=== PATIENT | female | born 1980 | race Caucasian/White ===

== ENCOUNTER 2018-02-14 10:44 | Inpatient (IN) | payer SELFPAY ==
[2018-02-14 11:17] LABS: #Basophils 0.1 thou/uL (0.0-0.2); #Eosinphils 0.5 thou/uL (0.0-0.7); #Lymphocytes 2.8 thou/uL (1.20-3.40); #Monocytes 0.6 thou/uL (0.11-0.59); %Basophils 1.1 % (0.0-1.0); %Lymphocytes 31.2 % (21.0-51.0); %Monocytes 6.5 % (0.0-10.0); %Neutrophils 55.3 % (42.0-75.0); Hemoglobin 9.4 g/dL (12.0-16.0); Mean Corpuscular HGB CONC 31.8 g/dL (32.0-36.0); Mean Corpuscular Volume 81.8 fL (78.0-98.0); Mean Platelet Volume 7.5 fL (7.4-10.4); Platelet Count 425 thou/uL (130-400); RBC Distribution Width 16.3 % (11.5-14.5); Red Blood Cell (RBC) Count 3.63 mill/uL (4.20-5.40)
[2018-02-14 11:38] LABS: ALT (SGPT) 15 U/L (8-55); AST (SGOT) 18 U/L (5-34); Albumin 4.1 g/dL (3.5-5.0); Alkaline Phosphatase 64 U/L (40-150); Anion Gap 12 mmol/L (10-20); BUN (Urea Nitrogen) 11 mg/dL (7.0-18.7); Bilirubin, Total 0.2 mg/dL (0.2-1.2); CK (CPK) 78 U/L (29-168); Calc. Creatinine Clearance 0 mL/min (70-130); Calcium 9.2 mg/dL (7.8-10.44); Carbon Dioxide 22 mmol/L (22-29); Chloride 108 mmol/L (98-107); Estimated GFR-MDRD 85; Globulin 2.9 g/dL (2.4-3.5); Glucose 83 mg/dL (70-105)
[2018-02-14 11:40] LABS: Sodium 138 mmol/L (136-145)
[2018-02-14 11:41] LABS: CKMB 0.9 ng/mL (0-6.6); Troponin I Less than 0.010 ng/mL (< 0.028)
--- NOTE | 2018-02-14 11:53 | RAD ---
CHEST ONE VIEW UPRIGHT PORTABLE: History: 37-year-old female with history of chest pain and pressure which began last night with nausea. Comparison: 03-22-15 FINDINGS: Monitor leads overlie the chest. Heart size is within normal limits. The lungs are clear. IMPRESSION: No acute intrathoracic disease. POS: [facility]
[2018-02-14] MEDS ORDERED: Mag-Al 1200 mg/1200 mg/30 ML UDCUP ONE (14:02)
[2018-02-14] MEDS ORDERED: Lidocaine Viscous Sol 2% 15 ml UD Cup ONE (14:02)
[2018-02-14 14:56] LABS: Troponin I Less than 0.010 ng/mL (< 0.028)
--- NOTE | 2018-02-14 15:29 | PDOC.FPRHP ---
- History of Present Illness Chief Complaint: Chest pain History of Present Illness: Mrs. Long presents with complaint of chest pain. Pain started yesterday evening , but she was able to go to sleep normally last night. This morning the pain gradually worsened. Located in center of chest and epigastric area. Pain was intermittent and does not radiate. Described as "pressure and fullness". 10/10 when it was the worst, but now it is gone. No alleviating factors. Movement and activity aggravates. She has had this same pain in the past, about 2 yrs ago, which underwent a cardiac workup which was negative. Endorsed nausea, no vomiting. [place] hot and like she could pass out, but never did. Denies history of heartburn or reflux. Has history of SOB w/exertion which has remained unchanged. Patient is on her menstrual cycle, day 3. She originally thought pain/cramping was from this. Patient has hx of anxiety which has been treated in the past, but not now. Says she has been under a lot of stress lately and became very tearful in the room. Previous chest pain events have occurred under times of stress as well. ED Course: aspirin, GI cocktail, EKG, CXR, labs - Allergies/Adverse Reactions Allergies Allergy/AdvReac Type Severity Reaction Status Date / Time No Known Allergies Allergy Verified 02/14/18 15:59 - Home Medications Medication Instructions Recorded Confirmed Type No Known [No Known] 02/14/18 02/14/18 History - History PMHx:Biscuspid aortic valve, anxiety, anemia PSHx: 3 c-sections FHx:mother VT in 40s. aunt VT in 30s. Grandparents had MIs. Family hx of anxiety. Social: Works at a grocery store. Smoker, 1ppd for 20 yrs. Occasional alcohol use. Denies drug use. - Review of Systems General: reports: night sweats (past few nights). denies: fever/chills, weight/ appetite/sleep changes Eyes: denies: eye pain, vision changes ENT: denies: nasal congestion, rhinorrhea Respiratory: reports: shortness of breath (unchanged), exercise intolerance ( chronic, unchanged). denies: cough Cardiovascular: reports: chest pain, edema. denies: palpitation Gastrointestinal: reports: nausea, constipation, abdominal pain (menstrual cramps). denies: vomiting Genitourinary: denies: incontinence, dysuria Skin: denies: rashes, lesions Musculoskeletal: denies: stiffness, swelling Neurological: denies: numbness, weakness Psychological: reports: anxiety. denies: depression - Vital signs BP: 122/79 HR: 62 RR: 16 Tmax: 98 Pox: 98% on RA Wt: 75 - Physical Exam Constitutional: NAD, awake, alert and oriented HEENT: normocephalic and atraumatic, PERRLA, EOMI, grossly normal vision, grossly normal hearing Neck: supple, trachea midline, no JVD, no thyromegaly, no bruits Chest: no-tender to palpation Heart: normal S1/S2, other (Bradycardia, 3/6 systolic aortic murmur) Lungs: CTAB, no respiratory distress, good air movement, no rales/rhonchi Abdomen: soft, non-tender, bowel sounds present Musculoskeletal: normal structure, normal tone, ROM grossly normal Neurological: no focal deficit Skin: no rash/lesions, capillary refill <2 seconds Heme/Lymphatic: no unusual bruising or bleeding Psychiatric: normal mood and affect, intact recent and remote memory FMR H&P: Results - Labs Result Diagrams: 02/14/18 11:12 02/14/18 11:12 Lab results: WBC 9.0 thou/uL (4.8-10.8) 02/14/18 11:12 Hgb 9.4 g/dL (12.0-16.0) L 02/14/18 11:12 Hct 29.7 % (36.0-47.0) L 02/14/18 11:12 MCV 81.8 fL (78.0-98.0) 02/14/18 11:12 Plt Count 425 thou/uL (130-400) H 02/14/18 11:12 Neutrophils % 55.3 % (42.0-75.0) 02/14/18 11:12 Sodium 138 mmol/L (136-145) 02/14/18 11:12 Potassium 4.0 mmol/L (3.5-5.1) 02/14/18 11:12 Chloride 108 mmol/L (98-107) H 02/14/18 11:12 Carbon Dioxide 22 mmol/L (22-29) 02/14/18 11:12 BUN 11 mg/dL (7.0-18.7) 02/14/18 11:12 Creatinine 0.77 mg/dL (0.6-1.1) 02/14/18 11:12 Glucose 83 mg/dL (70-105) 02/14/18 11:12 Calcium 9.2 mg/dL (7.8-10.44) 02/14/18 11:12 Total Bilirubin 0.2 mg/dL (0.2-1.2) 02/14/18 11:12 AST 18 U/L (5-34) 02/14/18 11:12 ALT 15 U/L (8-55) 02/14/18 11:12 Alkaline Phosphatase 64 U/L (40-150) 02/14/18 11:12 Creatine Kinase 78 U/L (29-168) 02/14/18 11:12 CK-MB (CK-2) 0.9 ng/mL (0-6.6) 02/14/18 11:12 B-Natriuretic Peptide 80.1 pg/mL (0-100) 02/14/18 11:09 Serum Total Protein 7.0 g/dL (6.0-8.3) 02/14/18 11:12 Albumin 4.1 g/dL (3.5-5.0) 02/14/18 11:12 Lipase 31 U/L (8-78) 02/14/18 11:12 - EKG Interpretation EKG: Sinus bradycardia, no ST changes FMR H&P: A/P - Plan Chest pain rule out (ACS vs angina vs MSK vs anxiety vs GERD) -considering patient's family history of cardiac events at 30-40 yrs of age, ACS should be ruled out. Pain has resolved and workup is negative so far. Pt is under a lot of stress, so anxiety could definitely be contributory. -trend troponins, 2 negative -EKG- sinus moni -aspirin 81 mg -lipid panel -on telemetry -plan for stress test tomorrow, NPO after midnight Normocytic anemia -pt reports history of anemia -has been advised to take iron supplements, but doesn't Bradycardia -pt reports history of bradycardia, pulse usually in 40s-50s -will monitor on telemetry Anxiety -reports history of untreated anxiety. -will consider adding prn if anxiety worsens Hx of bicuspid aortic valve Ppx: Lovenox. No GI ppx indicated at this time Full Code FMR H&P: Upper Level - Pertinent history This is a 37F who complains of 1 day of chest pain, starting evening prior to admission, has been getting worst throughout the day. Substernal pressure pain, intermittent, non radiating, described as pressure like, 10/10 at worst, without alleviating factors. Movement and activity worsens it. Associated with nausea. Patient admits to being under stress recently, has a history of anxiety and had not been taking anxiety medication. She was tearful in interview. She had previous ER visit for chest pain with normal lab and diagnosis of anxiety. - Pertinent findings PMHx: Biscupsid aortic valve, anxiety, anemia Pshx: 3 , tubal ligation FHx: Mother and aunt with VT under age 40. Grandparent with MIs Social: Smokes 1 ppd for 20 year. Social alcohol use. Denies drug use. ROS Gen: Endorse occasional night sweat. Denies fever/chills. HEENT: Deny vision change, rhinorrhea, Resp: Endorse SOB with exertion but is unchanged. Denies cough. CV: Endorse chest pain. Denies palpitaiton GI: Endorse nausea. Denies vomiting. : Endorses menstral cramp. Denies dysuria Psych: Endorse anxiety PE Gen: NAD, awake, oriented HEENT: Normocephalic. Grossly normal vision, hearing. Moist membranes CV: Bradycardic, occasionally irregular with prolong beat Res: No respiratory distress, good air movement Abd: Soft, non tender withoug guarding Neuro: No focal deficit Psych: tearful Pertinent Lab/Imaging EKG: Sinus bradycardia, no obvious ischemic ST changes Trop: Negative x2 Hgb: 9.4 A/P 1. Atypical Chest pain, likely secondary to anxiety - Heart Score 2 due to 1 point for family history and 1 for history - Plan, Trop x 3, NPO at midnight for stress test tomorrow. Baby aspirin daily. - Lipid panel today for risk stratification. 2. Normocytic anemia - Has history of anemia. Patient does not desire iron supplementation 3. Bradycardia - Patient reports hx of bradycardia but not symptomatic this time. - Monitor on Tele 4. Anxiety - Reports history of anxiety. - Advise patient ot follow up with PCP 5. PPX - Lovenox. - Plan Date/Time: 02/14/18 1527 I, [Devante Blas], have evaluated this patient and agree with findings/plan as outlined by management retail intern resident. Pertinent changes/additions are listed here.
[2018-02-14] MEDS ORDERED: Nicotine 14 MG PATCH TD SCH ×2 (15:39→21:00)
[2018-02-14 16:08] VITALS: BMI 27.4
[2018-02-14 18:03] LABS: Troponin I Less than 0.010 ng/mL (< 0.028)
[2018-02-14] MEDS ORDERED: Lidocaine 2% Viscous Solution 20 ML, Aluminum & Magnesium Hydroxide 30 ML, Donnatal Eli... SSW SCH (22:30)
--- NOTE | 2018-02-14 22:56 | HP ---
Please send note from Dr. Carvajal for which I concur. HISTORY OF PRESENT ILLNESS: This is a 37-year-old female with extremely strong family history of hea rt disease, especially people even in the 30s and 40s and that is why she is coming in with a chest d iscomfort started last night really did not in the ER, but now is doing better shortly after a GI cocktail, but has issues with some shortness of breath. She is a heavy smoker, not having a lot o f other cardiac risk factors. Admits a lot of heartburn recently, admits a lot of anxiety recently a nd wonders if those things are may be playing into this. Initial blood workup showed hemoglobin low at 9.4. She is on her period currently. Initial Cardiac enzymes x2 have been normal. EKG is fine. PAST MEDICAL HISTORY, SURGICAL HISTORY, FAMILY HISTORY, REVIEW OF SYSTEMS: All per the resident's hi story and physical. PHYSICAL EXAMINATION: GENERAL: Mildly anxious affect, but in no apparent distress. VITAL SIGNS: Stable. HEENT: Within normal limits. CHEST: Clear. CARDIAC: Regular rate and rhythm. No murmurs, rubs or gallops. ABDOMEN: Positive bowel sounds, soft, nontender, nondistended. EXTREMITIES: Show no edema. ASSESSMENT AND PLAN: Chest pain. Certainly atypical unusual for her age and this is more likely reflux or anxiety, but we will continue to trend enzymes. Continue aspirin therapy and we will do a stress test in the [facility]. As long as it is normal will be able to be discharged out, likely on a proton pump inhibitor and an antacid or any anxiety medicine potentially as needed. She did not want to take one daily in the past. Certainly if the test is positive, we will get Cardiology involved.
[2018-02-14 23:19] LABS: Troponin I Less than 0.010 ng/mL (< 0.028)
[2018-02-15 05:03] LABS: #Basophils 0.1 thou/uL (0.0-0.2); #Eosinphils 0.5 thou/uL (0.0-0.7); #Lymphocytes 3.6 thou/uL (1.20-3.40); #Monocytes 0.7 thou/uL (0.11-0.59); #Neutrophils 4.7 thou/uL (1.40-6.50); %Basophils 0.8 % (0.0-1.0); %Lymphocytes 38.2 % (21.0-51.0); %Monocytes 6.9 % (0.0-10.0); %Neutrophils 49.2 % (42.0-75.0); Hemoglobin 8.7 g/dL (12.0-16.0); Mean Corpuscular HGB CONC 30.3 g/dL (32.0-36.0); Mean Corpuscular Hemoglobin 24.5 pg (27.0-31.0); Mean Platelet Volume 7.8 fL (7.4-10.4); Platelet Count 431 thou/uL (130-400); RBC Distribution Width 16.4 % (11.5-14.5); Red Blood Cell (RBC) Count 3.55 mill/uL (4.20-5.40); White Blood Cell (WBC) Count 9.5 thou/uL (4.8-10.8)
[2018-02-15 05:22] LABS: Anion Gap 12 mmol/L (10-20); BUN (Urea Nitrogen) 10 mg/dL (7.0-18.7); Calc. Creatinine Clearance 144 mL/min (70-130); Calcium 9.3 mg/dL (7.8-10.44); Carbon Dioxide 24 mmol/L (22-29); Cardiac Risk 3.3 (Less than 4.5); Chloride 109 mmol/L (98-107); Cholesterol 135 mg/dl (< 200 Desired); Estimated GFR-MDRD Greater than 90; Glucose 80 mg/dL (70-105); HDL Cholesterol 41 mg/dL (>60 Neg Risk); LDL Cholesterol, Calculated 73 mg/dL; Potassium 4.5 mmol/L (3.5-5.1); Sodium 140 mmol/L (136-145); Triglycerides 104 mg/dL (Less than 150)
--- NOTE | 2018-02-15 05:49 | PDOC.FM ---
- Subjective Subjective: Overnight, Ms. Long had two episodes where she experienced the chest pain, nausea, feeling SOB and anxious. After reviewing tele leads it revealed second degree type II heart block and an episode of supraventricular tachycardia each lasting about 7-8 seconds. - Objective Vital Signs & Weight: Vital Signs (12 hours) Temp Pulse Resp BP BP Pulse Ox 02/15/18 04:20 65 18 117/58 L 02/14/18 23:03 98.3 F 51 L 12 114/70 95 02/14/18 20:29 98 02/14/18 20:08 98.3 F 63 16 113/70 98 Weight Weight 77.247 kg I&O: 02/13/18 02/14/18 02/15/18 06:59 06:59 06:59 Intake Total 240 Balance 240 Result Diagrams: 02/15/18 03:30 02/15/18 03:30 <Milena Tristan - Last Filed: 02/15/18 13:49> - Objective Vital Signs & Weight: Vital Signs (12 hours) Temp Pulse Resp BP Pulse Ox 02/15/18 14:50 98.2 F 63 20 135/94 H 98 02/15/18 11:01 98.2 F 50 L 16 111/60 97 02/15/18 09:00 98.3 F 55 L 18 02/15/18 07:34 98.3 F 55 L 18 109/67 96 Weight Weight 77.247 kg I&O: 02/14/18 02/15/18 02/16/18 06:59 06:59 06:59 Intake Total 240 Balance 240 Result Diagrams: 02/15/18 03:30 02/15/18 03:30 <Emanuel Swenson - Last Filed: 02/15/18 16:48> Phys Exam - Physical Examination Constitutional: NAD HEENT: PERRLA Neck: no JVD Respiratory: no wheezing Cardiovascular: RRR aortic systolic murmur 3/6 Gastrointestinal: soft, non-tender Musculoskeletal: no edema Neurological: moves all 4 limbs Skin: no rash, cap refill <2 seconds <Milena Tristan - Last Filed: 02/15/18 13:49> Dx/Plan (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 Chest pain rule out (ACS vs angina vs MSK vs anxiety vs GERD) -considering patient's family history of cardiac events at 30-40 yrs of age, ACS should be ruled out. Pain has resolved and workup is negative so far. Pt is under a lot of stress, so anxiety could definitely be contributory. -Troponins negative x4 -Aspirin 81 mg -Lipid panel -Continue telemetry monitoring -Would kindly appreciate further recommendations from cardiology -Will hold off stress test until cardiology can see her, will continue NPO until then 2. Tachy-Marcelo syndrome -Tele monitoring strips show episodes of SVT and 2nd degree (type II heart block ) overnight 3. Normocytic anemia -pt reports history of anemia -currently on menstrual cycle -will order Fe, TIBC, Ferritin, B12, Folate 4. Anxiety -reports history of untreated anxiety. -will consider adding prn if anxiety worsens Hx of bicuspid aortic valve Ppx: Lovenox. No GI ppx indicated at this time Full Code <Milena Tristan - Last Filed: 02/15/18 13:49> Attending Addendum - Attending Addendum Date/Time: 02/15/18 4434 I personally evaluated the patient and discussed the management with Dr. Milena Tristan. I agree with the History, Examination, Assessment and Plan documented above with any addition or exceptions noted below. She is concerned about increased frequency of spells that have been occurring for the past couple of years with palpitations, rapid heartbeat, feeling flushed , nauseated and lightheaded on the verge of passing out. Rhythm strips indicate episodes of second degree block with variable ventricular response but occasional episodes of ventricular arrest. She also has episodes of SVT. Have consulted cardiology. I suspect she will likely need EP evaluation. We apologized that she has been held NPO pending cardiology eval and explained why and thanked her for her patience. [facility] <Emanuel Swenson - Last Filed: 02/15/18 16:48>
[2018-02-15] MEDS ORDERED: Enoxaparin Sodium 40 MG/0.4 ML SYRINGE SC SCH (09:00)
[2018-02-15] MEDS ORDERED: Acetaminophen 500 MG TAB PO PRN (10:03)
[2018-02-15] MEDS: Nicotine 14 MG PATCH TD SCH (10:33)
[2018-02-15] MEDS ORDERED: Communication Order-Pharmacy FS SCH (15:00)
[2018-02-15] MEDS ORDERED: Nitroglycerin 100MG/250ML BOT 250 ML ONE (15:06)
[2018-02-15] MEDS ORDERED: Lidocaine 1% (PF) 30 ML VIAL ONE (15:06)
[2018-02-15] MEDS ORDERED: Heparin 10,000 UNITS/1 ML VIAL ONE (15:07)
[2018-02-15] MEDS ORDERED: Midazolam HCl 2 mg/2 ml Vial ONE (15:30)
[2018-02-15] MEDS ORDERED: Fentanyl 100 MCG/2 ML VIAL ONE (15:30)
[2018-02-15] MEDS ORDERED: Verapamil 5 MG/2 ML VIAL ONE (15:30)
[2018-02-15] MEDS ORDERED: Atropine Sulfate 1 mg/1 ml Vial ONE (16:00)
[2018-02-15] MEDS ORDERED: Acetaminophen/Codeine 30-300mg Tablet PO PRN (16:04)
[2018-02-15] MEDS ORDERED: Nitroglycerin 0.4 MG TAB (25 Tab Bottle) SL PRN (16:04)
[2018-02-15] MEDS ORDERED: Sodium Chloride 0.9% 200 ML IV SCH (16:15)
[2018-02-15] MEDS ORDERED: Sodium Chloride 0.9% 1,000 ML IV SCH (16:15)
--- NOTE | 2018-02-15 16:49 | CON ---
DATE OF CONSULTATION: 02/15/2018 REASON FOR CONSULTATION: Chest pain and dysrhythmia. HISTORY OF PRESENT ILLNESS: Mr. Long is a very pleasant 37-year-old with his past history of tobacc o abuse who recently presented with chest pain. Her chest pain begins in her epigastric region and r adiates up into her chest. This lasts for several minutes. It is moderate to severe in nature. He then slowly dissipated. His CK and troponins have been negative. Last evening, she had another epis ode with associated ventricular standstill for 7 seconds. She was symptomatic with dizziness and lig htheadedness. This then resolved. She states she had a stress test performed at [facility] within the last year that was negative for ischemia. She continues to smoke one pack per day. PAST MEDICAL HISTORY: As above including a bicuspid valve, anxiety disorder, anemia. She is current ly on a period. PAST SURGICAL HISTORY: x3. FAMILY HISTORY: Positive for family history of mother who had bypass surgery in her 40s, but was smo sincere at the time. REVIEW OF SYSTEMS: Ten-point review of systems as above, otherwise negative. HOME MEDICATIONS: None. PHYSICAL EXAMINATION: VITAL SIGNS: Blood pressure 111/60, pulse 60, temperature 98.2. VITAL SIGNS: Blood pressure , pulse , temperature . NEUROLOGIC: The patient is alert and oriented times 3 with no focal neurologic deficits. HEENT: Sclerae without icterus. Mouth has moist mucous membranes with normal pallor. NECK: No JVD. Carotid upstroke brisk. No bruits bilaterally. LUNGS: Clear to auscultation with unlabored respirations. BACK: No scoliosis or kyphosis. CARDIAC: Regular rate and rhythm with normal S1 and S2. No S3 or S4 noted. No significant rubs, mu rmurs, thrills, or gallops noted throughout the precordium. PMI is not displaced. There is no jonathan ternal heave. ABDOMEN: Soft, nontender, nondistended. No peritoneal signs present. No hepatosplenomegaly. No ab normal striae. EXTREMITIES: 2+ femoral and 2+ dorsalis pedis pulses. No cyanosis, clubbing, or edema. SKIN: No gross abnormalities. PERTINENT LABORATORY DATA: As above including hemoglobin of 8.7, creatinine 0.66. IMPRESSION: 1. Chest pain. 2. Ventricular standstill. RECOMMENDATIONS: Ms. Long's symptoms certainly suggest unstable angina. She does have associated e pigastric pain, which could be related to her right coronary artery. This can also correspond with d ysrhythmias as described above. She has had a rest stress study (results unavailable) at [facility] within the last year that was negative for ischemia per patient. At this point, I recommend cor onary angiography plus PCI. I discussed the procedure in full detail with Ms. Long. Risks include, but not limited to the following: stent placement. There are no contraindications, we will proceed if needed. We will proceed with an arm case. If no significant age of ischemia, we then recommend EP consultation for a possible pacer.
[2018-02-15] MEDS: Sodium Chloride 0.9% 1,000 ML IV SCH ×2 (16:51→22:06)
[2018-02-15] MEDS: Acetaminophen/Codeine 30-300mg Tablet PO PRN (22:04)
[2018-02-15] MEDS ORDERED: DOBUTAMINE IN DEXTROSE 5 % 250 MG in Premix Bag 1 BAG IV SCH (23:15)
[2018-02-16 05:21] LABS: #Basophils 0.1 thou/uL (0.0-0.2); #Eosinphils 0.4 thou/uL (0.0-0.7); #Lymphocytes 2.8 thou/uL (1.20-3.40); #Monocytes 0.6 thou/uL (0.11-0.59); #Neutrophils 4.2 thou/uL (1.40-6.50); %Basophils 0.9 % (0.0-1.0); %Lymphocytes 34.8 % (21.0-51.0); %Monocytes 7.7 % (0.0-10.0); %Neutrophils 51.6 % (42.0-75.0); Hemoglobin 8.5 g/dL (12.0-16.0); Mean Corpuscular HGB CONC 31.1 g/dL (32.0-36.0); Mean Corpuscular Hemoglobin 25.4 pg (27.0-31.0); Mean Corpuscular Volume 81.6 fL (78.0-98.0); Mean Platelet Volume 7.7 fL (7.4-10.4); Platelet Count 417 thou/uL (130-400); RBC Distribution Width 16.2 % (11.5-14.5); Red Blood Cell (RBC) Count 3.34 mill/uL (4.20-5.40); White Blood Cell (WBC) Count 8.1 thou/uL (4.8-10.8)
[2018-02-16 05:33] LABS: Iron 19 ug/dL (50-170); Iron Binding Capacity, Total 355 mcg/dL (265-497)
[2018-02-16 05:35] LABS: Anion Gap 9 mmol/L (10-20); BUN (Urea Nitrogen) 10 mg/dL (7.0-18.7); Calc. Creatinine Clearance 134 mL/min (70-130); Calcium 8.7 mg/dL (7.8-10.44); Carbon Dioxide 24 mmol/L (22-29); Chloride 111 mmol/L (98-107); Estimated GFR-MDRD Greater than 90; Glucose 84 mg/dL (70-105); Iron 16 ug/dL (50-170); Iron Binding Capacity, Total 345 mcg/dL (265-497); Potassium 3.7 mmol/L (3.5-5.1); Sodium 140 mmol/L (136-145)
[2018-02-16] MEDS: Sodium Chloride 0.9% 1,000 ML IV SCH ×2 (05:44→15:12)
--- NOTE | 2018-02-16 09:12 | PDOC.FM ---
- Subjective Subjective: Ms. Long reported feeling well when I saw her this morning. Around 2300 she had an episode bradycardia into the 50s. Dobutamine was administered for 45 min but she became tachycardic in the 120s-130s and symptomatic c/o of feeling her heart beating really fast so it was discontinued. Cardiac cath was performed yesterday afternoon which showed no blockage, per report. - Objective Vital Signs & Weight: Vital Signs (12 hours) Temp Pulse Resp BP Pulse Ox 02/16/18 07:31 98.1 F 72 20 94/61 99 02/16/18 04:27 97.6 F 71 15 108/66 97 02/15/18 23:53 97.3 F L 85 12 131/80 100 Weight Weight 77.02 kg I&O: 02/15/18 02/16/18 02/17/18 06:59 06:59 06:59 Intake Total 240 2875 Output Total 2300 Balance 240 575 Result Diagrams: 02/16/18 04:17 02/16/18 04:17 EKG Reviewed by me: Yes <Milena Tristan - Last Filed: 02/16/18 17:35> - Objective Vital Signs & Weight: Vital Signs (12 hours) Temp Pulse Resp BP Pulse Ox 02/16/18 15:55 97.3 F L 62 18 107/71 97 02/16/18 10:56 97.3 F L 65 20 102/74 98 Weight Weight 77.02 kg I&O: 02/15/18 02/16/18 02/17/18 06:59 06:59 06:59 Intake Total 240 2875 1100 Output Total 2300 Balance 270 801 7566 Result Diagrams: 02/16/18 04:17 02/16/18 04:17 <Emanuel Swenson - Last Filed: 02/16/18 22:40> Phys Exam - Physical Examination HEENT: sclera anicteric Respiratory: no wheezing Cardiovascular: RRR aortic systolic murmur 3/6 Gastrointestinal: soft, non-tender, no distention Musculoskeletal: no edema Psychiatric: A&O x 3 Skin: no rash, normal turgor <Milena Tristan - Last Filed: 02/16/18 17:35> Dx/Plan (1) Tachy-moni syndrome Code(s): I49.5 - SICK SINUS SYNDROME Status: Acute (2) Anemia Code(s): D64.9 - ANEMIA, UNSPECIFIED Status: Chronic (3) Anxiety Code(s): F41.9 - ANXIETY DISORDER, UNSPECIFIED Status: Chronic (4) Chest pain, rule out acute myocardial infarction Code(s): R07.9 - CHEST PAIN, UNSPECIFIED Status: Acute - Plan Plan: 1. Chest pain rule out, secondary to Tachy-Moni syndrome -Considering patient's family history of cardiac events at 30-40 yrs of age, ( Aunt with Brugada's): ACS should be ruled out. Pain has resolved and workup is negative so far. -Troponins negative x4 -Aspirin 81 mg -Lipid panel -Continue telemetry monitoring -Dr. Contreras performed cath yesterday, report showed no evidence of blockage. Recommended pacemaker placement. Currently awaiting for EPS to talk to patient about next step. Will continue NPO 2. Tachy-Moni syndrome -Around 2300 last night became bradycardic to 50s, was given dobutamine, but became tachy (100s) and symptomatic so discontinued dobutamine drip. No other episodes since then. -Awaiting for EPS consult for pacemaker placement 3. Normocytic anemia -pt reports history of anemia -currently on menstrual cycle, has heavy menses -H/H 8.5/27.2, stable currently -Denies symptoms-no MIGUEL, feeling SOB or excessively fatigued -Follow up on Fe, TIBC, Ferritin, B12, Folate results 4. Anxiety -reports history of untreated anxiety. -will consider adding prn if anxiety worsens Hx of bicuspid aortic valve Ppx: Lovenox. No GI ppx indicated at this time Full Code <Milena Tristan - Last Filed: 02/16/18 17:35> Attending Addendum - Attending Addendum Date/Time: 02/16/18 9638 I personally evaluated the patient and discussed the management with Dr. Tristan. I agree with the History, Examination, Assessment and Plan documented above with any addition or exceptions noted below. At time of my exam her pulse is regular and she is having no symptoms. She advises an aunt had Brugada's syndrome and at an early age. Her coronary arteriogram yesterday was negative for significant CAD. We await EP evaluation and anticipate she will need antiarrthymic and pacemaker therapy. [facility] <Emanuel Swenson - Last Filed: 02/16/18 22:40>
[2018-02-16] MEDS: Acetaminophen/Codeine 30-300mg Tablet PO PRN (09:45)
--- NOTE | 2018-02-16 10:05 | CON ---
DATE OF CONSULTATION: 02/16/2018 HISTORY OF PRESENT ILLNESS: This is a 37-year-old life-long smoker, female who presented t o [facility] with chest pain on the . She was initially like an observation patient. Ongoing chest pain, epigastric pain, hot flashes, dizziness. Apparently, she has a known history of bicuspid aortic valve as a child with apparently several membe rs of the family having some kind of cardiac issues. She was seen by Cardiology yesterday and underwent a cardiac catheterization which was unremarkable. A 12-lead EKG showed bradycardia. Chest x-ray was taken which was otherwise unremarkable. The patient has smoked a pack a day for most of her life. PAST MEDICAL HISTORY: Otherwise, pertinent for previous stress test performed at [facility] which was negative. No history of diabetes. CHRONIC MEDICATIONS: Apparently none. ALLERGIES: None. SOCIAL HISTORY: She is a gaming cashier. REVIEW OF SYSTEMS: Ten point negative. PHYSICAL EXAMINATION: VITAL SIGNS: Sats are 90% on room air, temperature 98, blood pressure 194/61. CHEST: Chest revealed decreased breath sounds, no wheezing. CARDIAC: A 2/6 systolic ejection murmur all over the precordium. ABDOMEN: Soft. LABORATORY: White count 8000, H&H 8 and 26, platelet count 470. Electrolytes are normal. IMPRESSION: 1. Chest pain, status post catheterization, unremarkable. 2. Bradycardia. PLAN: The patient is to see EP Surgery today. Ongoing evaluation. Pulmonary has nothing to offer. I have advised the patient to refrain from smok ing. We will watch her while she is in the IMCU.
[2018-02-16] MEDS ORDERED: PROPOFOL 200 MG/20 ML VIAL ONE (12:33)
[2018-02-16] MEDS: Nicotine 14 MG PATCH TD SCH (12:50)
[2018-02-16] MEDS ORDERED: Lidocaine 1% (PF) 30 ML VIAL ONE ×2 (17:53→19:15)
[2018-02-16] MEDS ORDERED: Midazolam HCl 2 mg/2 ml Vial ONE (18:02)
[2018-02-16] MEDS ORDERED: Fentanyl 100 MCG/2 ML VIAL ONE (18:02)
[2018-02-16] MEDS ORDERED: CEFAZOLIN/Water 2 GM/20 ML SYRINGE ONE (18:39)
[2018-02-16] MEDS ORDERED: PROPOFOL 20 ML ONE (19:15)
[2018-02-16] MEDS ORDERED: Promethazine HCl 25 MG/ML VIAL IM PRN (19:35)
[2018-02-16] MEDS ORDERED: Promethazine HCl 25 MG/ML VIAL SLOW IVP PRN (19:35)
[2018-02-16] MEDS ORDERED: Ondansetron HCl/PF 4 MG/2 ML Vial IVP PRN (19:35)
--- NOTE | 2018-02-16 20:19 | CON ---
DATE OF CONSULTATION: 02/16/2018 ELECTROPHYSIOLOGY CONSULTATION REFERRING PHYSICIAN: Gamaliel Contreras MD REASON FOR CONSULTATION: Paroxysmal third-degree AV block with near syncope. HISTORY OF PRESENT ILLNESS: Ms. Long is a very pleasant 37-year-old woman, who presented to [facility] ER complaining of chest pain that began in the epigastric and radiated up towards her chest lasti ng for several minutes. Cardiology was brought on board and she underwent ischemic evaluation includ ing left heart catheterization and serial troponins. Her left heart catheterization did not reveal a ny significant coronary artery disease and her troponins have been negative so far. Of note, while o n telemetry, she had an episode of a 7-second ventricular standstill of which she was symptomatic. S he experienced dizziness, lightheadedness, and near syncope with this episode. She has never had epi sodes like this in the past. She denies any heart racing, palpitations, syncope, stroke, or stroke-l kelechi symptoms. Positive for near syncope, dizziness, lightheadedness, and chest pain as described abo ve. She currently smokes 1 pack a day. When she had her ventricular standstill episode, dobutamine was started for approximately 45 minutes; however, she became tachycardic with heart rates sustaining in the 120-130 beat per minute range and she was experiencing palpitations, and the dobutamine was then discontinued. PAST MEDICAL HISTORY: 1. Current tobacco habituation. 2. Anxiety. 3. Anemia. PAST SURGICAL HISTORY: x3. FAMILY HISTORY: Early onset coronary artery disease with her mother, who had bypass in her 40s with active tobacco use. Sudden cardiac related to Brugada syndrome for her aunt. SOCIAL HISTORY: Positive for tobacco, 1 pack per day for most of her adult life; positive for occasi onal alcohol; negative for illicit drugs. ALLERGIES: No known allergies. HOME MEDICATIONS: None. PHYSICAL EXAMINATION: VITAL SIGNS: Most recent vital signs 97.3 degrees Fahrenheit, pulse 65, blood pressure 102/74, respi rations 20, oxygen is 98% on room air. GENERAL: This is a well-appearing young adult woman. She is alert and oriented. She is somewhat an xious. Her speech is clear. Affect is as mentioned anxious. HEENT: Her pupils are equal, round, reactive, and accommodating to light. Her sclerae are anicteric . Her EOMs are intact. Her oral mucosa is moist and pink with adequate dentition. NECK: Supple without jugular venous distention. Her thyroid is nonpalpable. CHEST: Clear to auscultation bilaterally without wheezes, crackles, or rhonchi. Her respirations ar e even and unlabored with good bilateral excursion. HEART: Her heart rate is slow and variable, but largely sustaining in the 60-70 beat per minute rang e with occasional drops into 40 beats per minute. PMI is nondisplaced. EXTREMITIES: Warm and dry to touch without clubbing, cyanosis, or edema. ABDOMEN: Soft and nontender without palpable masses and hepatojugular reflex is negative. Positive bowel sounds are noted throughout. NEUROLOGIC: Grossly intact and nonfocal. DATABASE: Review of telemetry and EKGs reveal paroxysmal episodes of third-degree AV block as well a s a tachybrady episode. Left heart catheterization on 02/14/2018 did not reveal any significant sten osis. No PCI was performed and recommendations include medical management and risk factor modificati on and tobacco cessation. LABORATORY DATA: WBC 8.1, hemoglobin 8.5, hematocrit 27.2, and platelet count is 417. Chemistry: S odium 148, potassium 3.7, BUN is 10, creatinine 0.71. Serial troponins were negative. TSH is 1.94. IMPRESSION: 1. Paroxysmal symptomatic third-degree AV block with near syncope and associated chest pain. 2. Tachybrady episode likely secondary to a reaction following pain. 3. Atypical chest pain with a negative left heart catheterization, rule out myocardial infarctions i n origin as a source of her pain. 4. History of bicuspid valve with systolic aortic valve murmur. 5. Family history of Brugada syndrome and related sudden cardiac of an aunt. 6. Excessive smoking and energy drink intake. PLAN: 1. Two-dimensional echocardiogram. 2. EP study and likely proceed with dual-chamber permanent pacemaker implantation following. 3. We discussed the risks, benefits, and alternatives with EP study as well as permanent pacemaker i mplantation. At this point, further evaluation of her arrhythmias is warranted with an EP study to c bensonk for any inducible arrhythmias prior to pacemaker implant. Also, given her paroxysmal third-degr ee AV block with associated symptoms and near syncope, she definitely meets criteria for a dual-chamb er pacemaker for prevention of bradycardia. Risks of EP study include hematoma, bleeding of the vein s, damage to the veins, damage to the heart, and arrhythmias. Risks associated with pacemaker implan tation include pain, swelling, bruising, infection, damage to the lungs, damage to the heart, need fo r invasive CT surgery or chest tube placement to manage any bleeding complications. The patient voic es understanding. All questions have been answered. She agrees with plan of care and [facility] with EP study and pacemaker implantation in the near future. This is dictated as scribe for Dr. Lefty Johnson.
[2018-02-16] MEDS: traMADol HCl 50 MG TAB PO PRN (23:02)
--- NOTE | 2018-02-17 03:23 | OP ---
DATE OF SERVICE: 02/16/2018 ELECTROPHYSIOLOGY STUDY REPORT REFERRING PHYSICIAN: Dr. Contreras and Dr. Goyal. REASON FOR PROCEDURE: Ms. Long is a 37-year-old woman who presented with severe chest pains, near s [facility]. She had a documented ____ of asystole on telemetry with documented complete AV block. If assessment of her sinus and AV olga function, also there is some tachyarrhythmia. Results were s een and assessed for inducible arrhythmias. Patient has family history of Brugada syndrome, but not evident on the EKGs at this time. PROCEDURE IN DETAIL: Patient received deep sedation by Anesthesia specialist. The venous area was p repped, draped, and anesthetized using subcutaneous lidocaine with ultrasound guidance. The right fe moral vein was cannulated. A 6-Estonian sheath was introduced through which a 6-Estonian octapolar anitra ter was advanced to the left subclavian vein for proving patency. Following that, it was placed into the right ventricle, His bundle area of right atrium. Pacing mapping and recording was performed in each location. PROCEDURE RESULTS: The baseline measurements based on sinus cycle length of 1020, WY 209, QRS 63, QT 397, AH 166, HV 45 milliseconds. Sinus node recovery time was 1300. The corrected sinus node recov isaura time is 290 milliseconds. AV Wenckebach cycle length was 560 milliseconds, no retrograde VA cond uction was seen. AV node ERP was 600/530 milliseconds. No dual AV node physiology was present. The RV ERP was 600/220 with single extra stimuli up to 3 ventricular extrastimuli ____. Couple beats of nonsustained ventricular arrhythmia was induced only. CONCLUSION: 1. Abnormal AV olga function with relatively low Wenckebach cycle length and low AV ERP. 2. No VA conduction. 3. No inducible atrial or ventricular arrhythmias are detected. PLAN: Proceed with the dual chamber pacemaker implantation.
[2018-02-17] MEDS: traMADol HCl 50 MG TAB PO PRN ×2 (04:19→12:42)
[2018-02-17] MEDS: Sodium Chloride 0.9% 1,000 ML IV SCH (04:20)
[2018-02-17 06:25] LABS: #Basophils 0.1 thou/uL (0.0-0.2); #Eosinphils 0.4 thou/uL (0.0-0.7); #Lymphocytes 2.4 thou/uL (1.20-3.40); #Monocytes 0.6 thou/uL (0.11-0.59); #Neutrophils 6.5 thou/uL (1.40-6.50); %Basophils 0.7 % (0.0-1.0); %Eosinophils 3.8 % (0.0-10.0); %Lymphocytes 24.2 % (21.0-51.0); %Monocytes 6.3 % (0.0-10.0); Hemoglobin 8.4 g/dL (12.0-16.0); Mean Corpuscular HGB CONC 30.7 g/dL (32.0-36.0); Mean Corpuscular Hemoglobin 24.9 pg (27.0-31.0); Mean Corpuscular Volume 81.4 fL (78.0-98.0); Mean Platelet Volume 7.4 fL (7.4-10.4); Platelet Count 391 thou/uL (130-400); RBC Distribution Width 16.2 % (11.5-14.5); Red Blood Cell (RBC) Count 3.37 mill/uL (4.20-5.40); White Blood Cell (WBC) Count 9.9 thou/uL (4.8-10.8)
[2018-02-17 06:46] LABS: Anion Gap 10 mmol/L (10-20); BUN (Urea Nitrogen) 12 mg/dL (7.0-18.7); Calc. Creatinine Clearance 131 mL/min (70-130); Calcium 8.4 mg/dL (7.8-10.44); Carbon Dioxide 23 mmol/L (22-29); Chloride 109 mmol/L (98-107); Estimated GFR-MDRD Greater than 90; Glucose 73 mg/dL (70-105); Potassium 3.8 mmol/L (3.5-5.1); Sodium 138 mmol/L (136-145)
--- NOTE | 2018-02-17 08:17 | PDOC.FM ---
- Subjective Subjective: NAEO. Per patient had no episodes of palpitations or chest pain. Dr. Johnson placed pacemarker yesterday evening. Patient only complains of pain at surgical incision site but otherwise reports feeling well. - Objective MAR Reviewed: Yes Vital Signs & Weight: Vital Signs (12 hours) Temp Pulse Resp BP Pulse Ox 02/17/18 07:43 97.9 F 68 16 100/74 95 02/17/18 04:00 97.6 F 60 16 114/77 97 02/17/18 00:00 98.5 F 66 18 103/64 97 02/16/18 20:30 97.7 F 61 18 Weight Weight 77.02 kg I&O: 02/16/18 02/17/18 02/18/18 06:59 06:59 06:59 Intake Total 2875 1100 Output Total 2300 Balance 575 1100 Result Diagrams: 02/17/18 05:28 02/17/18 05:28 EKG Reviewed by me: Yes Radiology Reviewed by me: Yes (CXR, no ptx s/p pacemaker insertion) <Milena Tristan - Last Filed: 02/17/18 11:50> - Objective Vital Signs & Weight: Vital Signs (12 hours) Temp Pulse Resp BP Pulse Ox 02/17/18 12:06 98.0 F 71 12 88/58 L 93 L 02/17/18 08:00 97.9 F 68 16 95 02/17/18 07:43 97.9 F 68 16 100/74 95 02/17/18 04:00 97.6 F 60 16 114/77 97 Weight Weight 77.02 kg I&O: 02/16/18 02/17/18 02/18/18 06:59 06:59 06:59 Intake Total 2875 1100 Output Total 2300 Balance 575 1100 Result Diagrams: 02/17/18 05:28 02/17/18 05:28 <Emanuel Swenson - Last Filed: 02/17/18 14:43> Phys Exam - Physical Examination Constitutional: NAD Neck: supple Respiratory: no wheezing, clear to auscultation bilateral Cardiovascular: RRR aortic systolic murmur 3/6 Skin: no rash, normal turgor Deviation from normal: Scar at site of pacemarker surgical incision. Wound sealed, no erythema -: or purulence. Tender to touch. 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 Chest pain rule out, secondary to Tachy-Marcelo syndrome -Considering patient's family history of cardiac events at 30-40 yrs of age, ( Aunt with Brugada's): ACS should be ruled out. Pain has resolved and workup is negative so far. -Cardiac enzymes have all been negative -Prior cardiac cath performed by Dr. Contreras showed no blockage. We kindly thank him for his recommendations and services. 2. Tachy-Marcelo syndrome -Diagnostic cath peformed, per report evidence of abnormal AV olga function and dual chamber pacemaker was implanted by Dr. Johnson -Patient remained asymptomatic overnight -Plans to follow up with Dr. Johnson on 03/02 3. Normocytic anemia -pt reports history of anemia -currently on menstrual cycle, has heavy menses -H/H remains the same today at 8.4/27.2 -Folate levels low at 4 and iron levels too -Will start on folic acid and ferrous sulfate 4. Anxiety -reports history of untreated anxiety. -will consider adding prn if anxiety worsens Hx of bicuspid aortic valve Ppx: Lovenox. No GI ppx indicated at this time Dispo: Discharge today pending Dr. Johnson's recommendations. All other chronic conditions are stable and have been managed. Full Code <Milena Tristan - Last Filed: 02/17/18 11:50> Attending Addendum - Attending Addendum Date/Time: 02/17/18 1440 I personally evaluated the patient and discussed the management with Dr. Florence Tristan. I agree with the History, Examination, Assessment and Plan documented above with any addition or exceptions noted below. She feels well. No symptoms except sore at pacemaker insertion site. Pulse is regular about 74 bpm on my exam. A: Paroxysmal 3d degree heart block post permanent pacemaker per Dr. Johnson. Chronic iron deficiency anemia with low folate level. P: D/C home with pain medications Rx by Dr. Johnson to f/u with him next week. Start oral iron and folate. F/U with Dr. Tristan in clinic in 4-6 weeks to recheck CBC. [facility] <Emanuel Swenson - Last Filed: 02/17/18 14:43>
[2018-02-17] MEDS ORDERED: Folic Acid 1 MG TAB PO SCH (09:00)
--- NOTE | 2018-02-17 09:12 | PRG ---
DATE OF SERVICE: 02/17/2018 This morning she is better. She is less short of breath. She is status post dual-chamber pacemaker implantation. She is having some pain at the insertion site, but otherwise denies difficulty breathi ng. PHYSICAL EXAMINATION: VITAL SIGNS: Blood pressure 100/74. Sats 96% on room air, respiration 16, temperature 97. CHEST: No wheezing, crackles. CARDIAC: Normal S1, S2. No gallops. ABDOMEN: Soft, no masses. IMPRESSION: Status post dual-chamber pacemaker for symptomatic bradycardia. PLAN: Pulmonary will follow while in the [facility]. She will refrain from smoking.
[2018-02-17] MEDS: Nicotine 14 MG PATCH TD SCH (11:13)
--- NOTE | 2018-02-17 11:19 | RAD ---
FRONTAL VIEW CHEST: Clinical history: Pacemaker placement evaluation. FINDINGS: There is a left subclavian approach dual-lead cardiac pacing device with leads overlying the right at rium and right ventricle. There is no evidence of a significant post procedure pneumothorax. There is mild elevation of the right hemidiaphragm. IMPRESSION: Left cardiac pacing device in place, without significant post procedural pneumothorax. POS: [facility]
[2018-02-17 12:07] VITALS: BP 88/58; TEMP 98
[2018-02-18] MEDS ORDERED: Ferrous Fumarate 324 MG TAB PO SCH (08:00)
--- NOTE | 2018-02-19 02:09 | DIS-2 ---
DATE OF ADMISSION: 02/14/2018 DATE OF DISCHARGE: 02/17/2018 ADMITTING ATTENDING: Dr. Amadou Goyal. DISCHARGE ATTENDING: Dr. Emanuel Swenson. RESIDENT: Dr. Milena Tristan. CONSULTATIONS: Cardiology, Dr. Contreras; Electrophysiology, Dr. Johnson. PROCEDURE: Pacemaker implantation. PRIMARY DIAGNOSIS: Paroxysmal third-degree atrioventricular block with near syncope. SECONDARY DIAGNOSES: Normocytic anemia, bicuspid aortic valve, anxiety. DISCHARGE MEDICATIONS: 1. Keflex 500 mg p.o. q.6 hours. 2. Ferrous sulfate 324 mg p.o. every morning with breakfast. 3. Folic acid 1 mg oral daily. HISTORY OF PRESENT ILLNESS AND HOSPITAL COURSE: Ms. Long is a 37-year-old female who came in for ch est pain, was admitted for ACS rule out. She came in for an episode of chest pain, palpitations. Sh eric had a prior episode several years ago that resulted in a negative cardiac workup. She had extensiv e family history of Brugada syndrome and related sudden cardiac of an aunt. Also, she has a po sitive smoking history. During hospital course, she had a tachybrady episode, requiring dobutamine a ccompanied with concurrent symptoms. Dr. Contreras from Cardiology was consulted. He diagnosed her with paroxysmal third-degree AV block with near syncope, performed a cardiac catheterization on 02/14 that did not reveal any significant stenosis. In addition, cardiac enzymes were negative. Dr. Johnson, sandwich artist was consulted for pacemaker implantation and pacemaker was successfully pl aced with no complications. For pacemaker implantation, Dr. Johnson performed an electrophysiology stud y report that showed abnormal AV olga function with relatively low Wenckebach cycle length and low A V-PABLITO. No VA conduction. No inducible atrial or ventricular arrhythmias were detected. He then pro ceeded with a chamber pacemaker implantation. The patient did not experience any more symptoms nor t achybrady episodes after pacemaker implantation. In addition, labs showed a normocytic anemia with h emoglobin 8.4-8.7 with iron studies showing low serum iron and low folate. The patient was started o n ferrous sulfate and folic acid in hospital and upon discharge. DISPOSITION: Stable. DISCHARGE INSTRUCTIONS: 1. Location: Home. 2. Diet: Normal diet. 3. Activity: As tolerated. 4. Followup: Follow up with [facility] physicians, Milena Tristan and has a followup appointment jose Johnson scheduled on 03/02/2018.
== END 2018-02-17 13:31 | disposition home or self-care (01) | DRG 244 ==
LOC: ERS 10:44 → OBSVTOIN 15:18 → 2SW 15:18 → 2NO 02-15 17:46 → 2SW 02-15 17:51 → IMCU/EMU 02-15 18:39
PROVIDERS: ADMIT Family Medicine; ATTEND Family Medicine
PROC: 0JH606Z Insertion of Pacemaker, Dual Chamber into Chest Subcutaneous Tissue and Fascia, Open Approach (ICD-10-PCS; 2018-02-14)
PROC: 02H63JZ Insertion of Pacemaker Lead into Right Atrium, Percutaneous Approach (ICD-10-PCS; 2018-02-14)
PROC: 02HK3JZ Insertion of Pacemaker Lead into Right Ventricle, Percutaneous Approach (ICD-10-PCS; 2018-02-14)
PROC: 4A023N7 Measurement of Cardiac Sampling and Pressure, Left Heart, Percutaneous Approach (ICD-10-PCS; principal; 2018-02-15)
PROC: B2111ZZ Fluoroscopy of Multiple Coronary Arteries using Low Osmolar Contrast (ICD-10-PCS; 2018-02-15)
PROC: B2151ZZ Fluoroscopy of Left Heart using Low Osmolar Contrast (ICD-10-PCS; 2018-02-15)
PROC: 4A023FZ Measurement of Cardiac Rhythm, Percutaneous Approach (ICD-10-PCS; 2018-02-16)
PROC: 4A0234Z Measurement of Cardiac Electrical Activity, Percutaneous Approach (ICD-10-PCS; 2018-02-16)
DX: I44.2 Atrioventricular block, complete (principal); F41.9 Anxiety disorder, unspecified; D64.9 Anemia, unspecified; F17.210 Nicotine dependence, cigarettes, uncomplicated; Z82.49 Family history of ischemic heart disease and other diseases of the circulatory system; I49.5 Sick sinus syndrome
CPT/HCPCS: 33208; 36415; 71045; 76942; 80048; 80053; 80061; 82553; 82607; 82728; 82746; 83540; 83550; 83690; 83880; 84443; 84484; 85025; 93005; 93010; 93306; 93454; 93621; 94760; 99152; 99153; 99406; C1730; C1769; C1785; C1898; J0461; J1250; J1644; J1650; J2001; J2250; J2704; J3010; J3490; J7070

== ENCOUNTER 2018-08-04 13:30 | Emergency (ER) | payer SELFPAY ==
[2018-08-04 14:04] LABS: #Basophils 0.1 thou/uL (0.0-0.2); #Eosinphils 0.5 thou/uL (0.0-0.7); #Lymphocytes 2.8 thou/uL (1.20-3.40); #Monocytes 0.7 thou/uL (0.11-0.59); #Neutrophils 4.9 thou/uL (1.40-6.50); %Basophils 1.2 % (0.0-1.0); %Eosinophils 5.1 % (0.0-10.0); %Lymphocytes 31.7 % (21.0-51.0); %Monocytes 7.8 % (0.0-10.0); %Neutrophils 54.3 % (42.0-75.0); Hemoglobin 9.5 g/dL (12.0-16.0); Mean Corpuscular HGB CONC 30.2 g/dL (32.0-36.0); Mean Corpuscular Hemoglobin 24.4 pg (27.0-31.0); Mean Platelet Volume 7.4 fL (7.4-10.4); Platelet Count 522 thou/uL (130-400); RBC Distribution Width 16.1 % (11.5-14.5); Red Blood Cell (RBC) Count 3.87 mill/uL (4.20-5.40)
[2018-08-04 14:25] LABS: ALT (SGPT) 18 U/L (8-55); AST (SGOT) 19 U/L (5-34); Albumin 4.1 g/dL (3.5-5.0); Alkaline Phosphatase 73 U/L (40-150); Anion Gap 13 mmol/L (10-20); BUN (Urea Nitrogen) 6 mg/dL (7.0-18.7); Bilirubin, Total 0.2 mg/dL (0.2-1.2); Calc. Creatinine Clearance 0 mL/min (70-130); Calcium 9.5 mg/dL (7.8-10.44); Carbon Dioxide 24 mmol/L (22-29); Chloride 106 mmol/L (98-107); Estimated GFR-MDRD 84; Globulin 3.6 g/dL (2.4-3.5); Glucose 83 mg/dL (70-105); Lipase 16 U/L (8-78); Potassium 3.9 mmol/L (3.5-5.1); Protein, Total 7.7 g/dL (6.0-8.3); Sodium 139 mmol/L (136-145)
[2018-08-04 15:00] LABS: BHCG - Serum Negative (NEGATIVE); Pregs Control Background? CLEAR/WHITE (CLR/WHITE); Pregs Control Bar Appear? YES (CONTROL BAR)
[2018-08-04] MEDS ORDERED: Ondansetron PF 4 MG/2 ML Vial ONE (15:20)
[2018-08-04 15:21] LABS: Bilirubin Negative (Negative); Blood, Urine Negative (Negative); Clarity CLEAR (Clear); Glucose, Urine (Dipstick) Negative (Negative); Leukocyte Negative (Negative); Nitrite Negative (Negative); Protein, Urine (Dipstick) Negative (Neg-Trace); Specific Gravity, Urine 1.005 (1.002-1.036); Urobilinogen 0.2 mg/dL (0.2-1.0); pH, Urine 6.5 (5.0-9.0)
[2018-08-04] MEDS ORDERED: Lidocaine Viscous Sol 2% 15 ml UD Cup ONE (15:38)
[2018-08-04] MEDS ORDERED: Mag-Al 1200 mg/1200 mg/30 ML UDCUP ONE (15:38)
--- NOTE | 2018-08-04 15:58 | ULT ---
RIGHT UPPER QUADRANT ULTRASOUND: 08/04/18 HISTORY: Epigastric pain. Multiple longitudinal and transverse images of the right upper quadrant of the abdomen is obtained us ing a multihertz curvilinear transducer. Real time, color flow and spectral waveform doppler analysis demonstrates the liver to be unremarkable. The pancreas is unremarkable. No evidence of gallstones seen. No evidence of pericholecystic fluid seen. Normal hepatopedal flow is seen. Common bile duct is of normal size measuring 2 mm. Visualized portions of the pancreas is unremarkable. The right kidney is unremarkable. No evidence of hydronephrosis seen. Right kidney measures 10.6 cm f rom pole to pole. IMPRESSION: Normal right upper quadrant ultrasound. POS: [facility]
--- NOTE | 2018-08-04 16:58 | RAD ---
PORTABLE UPRIGHT FRONTAL CHEST RADIOGRAPH: 08/04/2018 HISTORY: Epigastric pain and vomiting. COMPARISON: 02/14/2018 FINDINGS: There is a dual-lead transvenous pacing device inserted via a left subclavian approach with leads ove rlying the region of the right atrium and the right ventricle. There is no pneumothorax, pleural flu id, focal consolidation, or alveolar edema. IMPRESSION: No acute findings. POS: [facility]
[2018-08-04] MEDS ORDERED: Pantoprazole 40 MG VIAL ONE (17:16)
== END 2018-08-04 17:36 | disposition home or self-care (01) ==
LOC: ERS 13:30
DX: R10.11 Right upper quadrant pain (principal); R19.7 Diarrhea, unspecified; R11.2 Nausea with vomiting, unspecified; F41.9 Anxiety disorder, unspecified; F17.210 Nicotine dependence, cigarettes, uncomplicated
CPT/HCPCS: 36415; 71045; 76705; 80053; 81003; 83690; 84484; 84703; 85025; 93005; 96361; 96372; 96374; 96375; C9113; J2405

== ENCOUNTER 2018-09-30 16:30 | Emergency (ER) | payer SELFPAY ==
[2018-09-30 17:02] LABS: Hemoglobin 8.5 g/dL (12.0-16.0); Mean Corpuscular HGB CONC 29.6 g/dL (32.0-36.0); Mean Corpuscular Hemoglobin 23.6 pg (27.0-31.0); Mean Corpuscular Volume 79.6 fL (78.0-98.0); Mean Platelet Volume 7.6 fL (7.4-10.4); Platelet Count 545 thou/uL (130-400); RBC Distribution Width 15.9 % (11.5-14.5); Red Blood Cell (RBC) Count 3.61 mill/uL (4.20-5.40); White Blood Cell (WBC) Count 9.3 thou/uL (4.8-10.8)
[2018-09-30] MEDS ORDERED: Mag-Al 1200 mg/1200 mg/30 ML UDCUP ONE (17:04)
[2018-09-30] MEDS ORDERED: Lidocaine Viscous Sol 2% 15 ml UD Cup ONE (17:04)
[2018-09-30 17:20] LABS: ALT (SGPT) 14 U/L (8-55); AST (SGOT) 14 U/L (5-34); Alkaline Phosphatase 64 U/L (40-150); Anion Gap 9 mmol/L (10-20); BUN (Urea Nitrogen) 7 mg/dL (7.0-18.7); Bilirubin, Total 0.2 mg/dL (0.2-1.2); Calc. Creatinine Clearance 0 mL/min (70-130); Calcium 9.1 mg/dL (7.8-10.44); Carbon Dioxide 25 mmol/L (22-29); Chloride 108 mmol/L (98-107); Estimated GFR-MDRD Greater than 90; Globulin 3.1 g/dL (2.4-3.5); Glucose 99 mg/dL (70-105); Lipase 26 U/L (8-78); Potassium 3.4 mmol/L (3.5-5.1); Protein, Total 7.1 g/dL (6.0-8.3); Sodium 139 mmol/L (136-145)
[2018-09-30 17:43] LABS: #Basophils 0.1 thou/uL (0.0-0.2); #Eosinphils 0.3 thou/uL (0.0-0.7); #Monocytes 0.7 thou/uL (0.11-0.59); #Neutrophils 5.1 thou/uL (1.40-6.50); %Eosinophils 3.7 % (0.0-10.0); %Lymphocytes 32.8 % (21.0-51.0); %Monocytes 7.8 % (0.0-10.0); %Neutrophils 54.8 % (42.0-75.0); Anisocytosis SLIGHT = 6-15 cells (100X) (0-5/hpf); Elliptocytes SLIGHT = 2-5 cells (100X) (0-1/hpf); Hypochromia SLIGHT = 6-15 cells (100X) (0-5/hpf); MDiff Complete? YES; Platelet Morphology Comment Appears Increased
--- NOTE | 2018-09-30 18:24 | RAD ---
CHEST FRONTAL VIEW: 09/30/18 INDICATION: Pain. COMPARISON: 08/04/18. FINDINGS: There is enlargement of the cardiac silhouette with a dual lead left subclavian approach cardiac paci ng device with leads overlying the right atrium and right ventricle. There is no lobar consolidation or effusion. The lungs are slightly hyperinflated. IMPRESSION: No focal consolidation. Prominent cardiac silhouette. Correlate clinically. POS: [facility]
[2018-09-30] MEDS ORDERED: Metoprolol Tartrate 25 MG TAB ONE (19:07)
== END 2018-09-30 19:10 | disposition home or self-care (01) ==
LOC: ERS 16:30
DX: I47.1 Supraventricular tachycardia (principal); F41.9 Anxiety disorder, unspecified; I38 Endocarditis, valve unspecified; F17.210 Nicotine dependence, cigarettes, uncomplicated
CPT/HCPCS: 36415; 71045; 80053; 83690; 84484; 85025; 93005

== ENCOUNTER 2019-11-02 13:01 | Observation (INO) | payer BC ==
[2019-11-02 13:44] LABS: #Basophils 0.1 thou/uL (0.0-0.2); #Eosinphils 0.4 thou/uL (0.0-0.7); #Lymphocytes 3.3 thou/uL (1.20-3.40); #Monocytes 0.9 thou/uL (0.11-0.59); #Neutrophils 7.9 thou/uL (1.40-6.50); %Basophils 0.7 % (0.0-1.0); %Eosinophils 3.4 % (0.0-10.0); %Lymphocytes 26.2 % (21.0-51.0); %Monocytes 7.2 % (0.0-10.0); %Neutrophils 62.5 % (42.0-75.0); Hemoglobin 12.5 g/dL (12.0-16.0); Mean Corpuscular HGB CONC 32.2 g/dL (32.0-36.0); Mean Corpuscular Hemoglobin 29.3 pg (27.0-31.0); Mean Corpuscular Volume 91.1 fL (78.0-98.0); Platelet Count 373 thou/uL (130-400); RBC Distribution Width 13.7 % (11.5-14.5); Red Blood Cell (RBC) Count 4.28 mill/uL (4.20-5.40); White Blood Cell (WBC) Count 12.6 thou/uL (4.8-10.8)
--- NOTE | 2019-11-02 13:47 | RAD ---
CHEST 1 VIEW: Date: 11/02/2019 HISTORY: Chest pain. COMPARISON: Radiograph dated 09/30/2018. FINDINGS: Lungs are clear. No pneumothorax or effusion. Dual lead pacer is similar. Cardiac silhouette and medi astinal contours within normal limits. IMPRESSION: No acute intrathoracic abnormality. POS: [facility]
[2019-11-02 14:10] LABS: ALT (SGPT) 17 U/L (8-55); AST (SGOT) 24 U/L (5-34); Albumin 4.4 g/dL (3.5-5.0); Alkaline Phosphatase 72 U/L (40-110); Anion Gap 14 mmol/L (10-20); BUN (Urea Nitrogen) 9 mg/dL (7.0-18.7); Bilirubin, Total 0.5 mg/dL (0.2-1.2); CK (CPK) 55 U/L (29-168); Calc. Creatinine Clearance 0 mL/min (70-130); Calcium 9.7 mg/dL (7.8-10.44); Carbon Dioxide 20 mmol/L (22-29); Chloride 109 mmol/L (98-107); Estimated GFR-MDRD 88; Globulin 3.5 g/dL (2.4-3.5); Glucose 77 mg/dL (70-105); Potassium 4.8 mmol/L (3.5-5.1); Protein, Total 7.9 g/dL (6.0-8.3); Sodium 138 mmol/L (136-145)
[2019-11-02] MEDS ORDERED: Acetaminophen 500 MG TAB ONE (14:14)
[2019-11-02] MEDS ORDERED: Aspirin 325 MG TAB ONE (14:14)
[2019-11-02] MEDS ORDERED: Nitroglycerin 0.4 MG TAB 1 EACH ONE (14:14)
[2019-11-02] MEDS ORDERED: Nitroglycerin 2% Ointment 1 INCH/1 GM Packet ONE (14:14)
[2019-11-02 14:55] LABS: Magnesium 2.1 mg/dL (1.6-2.6); Phosphorus 2.9 mg/dL (2.3-4.7)
[2019-11-02 16:48] LABS: Troponin I Less than 0.010 ng/mL (< 0.028)
[2019-11-02] MEDS ORDERED: Acetaminophen 325 MG TAB PO PRN ×2 (17:52)
[2019-11-02] MEDS ORDERED: Ondansetron ODT 8 MG TAB PO PRN (17:52)
[2019-11-02] MEDS ORDERED: Acetaminophen 650 MG Suppository PR PRN (17:52)
[2019-11-02] MEDS ORDERED: Ondansetron PF 4 MG/2 ML Vial IVP PRN ×2 (17:52→18:08)
[2019-11-02 18:10] VITALS: BMI 27.1
--- NOTE | 2019-11-02 18:29 | PDOC.HHP ---
Hospitalist HPI - History of Present Illness chest pain History of Present Illness: Patient presents complaining of "spells" for the last week that consist of sudden severe central chest pain radiating down into the epigastric region, with nausea. It lasts 15 to 20 minutes and woke her from her sleep the night before last night. States it does not respond to nitroglycerin but eventually settles on its own. States the pain became more intense today, radiating across her entire chest. She feels as if she is going to vomit. No dizziness or lightheadedness. She as some dyspnea during these "spells". Once the pain settles she feels back to normal. Denies any shortness of breath with exertion. Has not had any fevers, an occasional dry cough without hemoptysis. No headaches or dizziness. Reports a good appetite. She was seen by Dr. Contreras earlier today and he referred her to the ED with plans to have her undergo an Echo. Of note, patient has a PPM placed 01/2018 for 3rd degree AVB. Patient states the episodes shes experiencing feel similar to what she felt before she had the PPM placed. ED Course: EKG: atrial pacemaker, rate 66. No ST changes or T wave changes. Nitro transdermal given (1 inch), nitro SL x 1 tab, 1000 mg ES Tylenol and 324 mg of Aspirin. CXR done showed no acute abnormalities. Labs done as well with WCC 12.6, Hgb 12.5, Hct 39. plalets 373. Trop negative x 2. TSH normal. Mg 2.1, Phosphorus 2.9, CK 55. BUN 9, Creat 0.74, GFR 88. Hospitalist ROS - Review of Systems Constitutional: denies: fever, chills, sweats, weakness, malaise, other Eyes: denies: pain, vision change, conjunctivae inflammation, eyelid inflammation, redness, other ENT: denies: ear pain, ear discharge, nose pain, nose discharge, nose congestion , mouth pain, mouth swelling, throat pain, throat swelling, other Respiratory: reports: shortness of breath (during "spells" of chest pain and nausea). denies: cough, dry, hemoptysis, SOB with excertion, pleuritic pain, sputum, wheezing, other Cardiovascular: reports: chest pain Gastrointestinal: reports: nausea. denies: vomiting, abdominal pain, diarrhea, constipation, melena, hematochezia, other Genitourinary: denies: dysuria, frequency, incontinence, hematuria, retention, other Musculoskeletal: denies: neck pain, shoulder pain, arm pain, back pain, hand pain, leg pain, foot pain, other Skin: denies: rash, lesions, jayda, bruising, other Neurological: denies: weakness, numbness, incoordination, change in speech, confusion, seizures, other - Medication Medications: HOME MEDICATIONS: hydrOXYzine HCl oral tablet : Strength - 10 mg : ORAL Patient Dose: 10 mg Oral.3 times a day as needed for anxiety. ALLERGIES: No known drug allergies. Hospitalist History - Past Medical History Cardiac: reports: Other (Bicuspid aortic valve 3rd degree AVB with PPM in place) Psych: reports: Anxiety - Past Surgical History Past Surgical History: reports: Tubal Ligation, Other (PPM placed 01/2018) - Family History Other Family History: Heart disease in family members in their 30s and 40s. - Social History Smoking Status: Current every day smoker (1 pack per day) Alcohol: reports: Occassional Drugs: reports: none Living Situation: With Family Activity level: independent ambulation - Exam General Appearance: NAD Eye: PERRL, anicteric sclera ENT: moist mucosa Neck: supple, no lymphadenopathy Heart: RRR, normal peripheral pulses, murmur present Respiratory: CTAB, no wheezes, no rales, no ronchi, normal chest expansion, no tachypnea, wheezes Gastrointestinal: soft, normal bowel sounds, no guarding, no rigidity Gastrointestinal - other findings: mild epigastric discomfort Extremities: no edema Skin: normal turgor, no lesions, no rashes Neurological: cranial nerve grossly intact, normal sensation to touch, no weakness, no focal deficits Musculoskeletal: normal tone, normal strength, no muscle wasting Psychiatric: normal affect, normal behavior, A&O x 3 Hospitalist Results - Labs Result Diagrams: 11/02/19 13:30 11/02/19 13:30 Lab results: WBC 12.6 thou/uL (4.8-10.8) H 11/02/19 13:30 Hgb 12.5 g/dL (12.0-16.0) 11/02/19 13:30 Hct 39.0 % (36.0-47.0) 11/02/19 13:30 MCV 91.1 fL (78.0-98.0) 11/02/19 13:30 Plt Count 373 thou/uL (130-400) 11/02/19 13:30 Neutrophils % 62.5 % (42.0-75.0) 11/02/19 13:30 Sodium 138 mmol/L (136-145) 11/02/19 13:30 Potassium 4.8 mmol/L (3.5-5.1) 11/02/19 13:30 Chloride 109 mmol/L (98-107) H 11/02/19 13:30 Carbon Dioxide 20 mmol/L (22-29) L 11/02/19 13:30 BUN 9 mg/dL (7.0-18.7) 11/02/19 13:30 Creatinine 0.74 mg/dL (0.6-1.1) 11/02/19 13:30 Glucose 77 mg/dL (70-105) 11/02/19 13:30 Calcium 9.7 mg/dL (7.8-10.44) 11/02/19 13:30 Total Bilirubin 0.5 mg/dL (0.2-1.2) 11/02/19 13:30 AST 24 U/L (5-34) 11/02/19 13:30 ALT 17 U/L (8-55) 11/02/19 13:30 Alkaline Phosphatase 72 U/L (40-110) 11/02/19 13:30 Creatine Kinase 55 U/L (29-168) 11/02/19 13:30 Troponin I Less than 0.010 ng/mL (< 0.028) 11/02/19 16:09 Serum Total Protein 7.9 g/dL (6.0-8.3) 11/02/19 13:30 Albumin 4.4 g/dL (3.5-5.0) 11/02/19 13:30 Hospitalist H&P A/P - Problem (1) Chest pain Code(s): R07.9 - CHEST PAIN, UNSPECIFIED Status: Acute (2) History of third degree heart block Code(s): Z86.79 - PERSONAL HISTORY OF OTHER DISEASES OF THE CIRCULATORY SYSTEM Status: Chronic (3) History of cardiac pacemaker in situ Code(s): Z95.0 - PRESENCE OF CARDIAC PACEMAKER Status: Chronic (4) Bicuspid aortic valve Code(s): Q23.1 - CONGENITAL INSUFFICIENCY OF AORTIC VALVE Status: Acute (5) Leukocytosis Code(s): D72.829 - ELEVATED WHITE BLOOD CELL COUNT, UNSPECIFIED Status: Acute (6) Anxiety Code(s): F41.9 - ANXIETY DISORDER, UNSPECIFIED Status: Chronic - Plan Plan: Interrogate pacemaker. Echo ordered. Continue to trend troponins. Consult placed to Dr. Contreras. Patient questioning stress test, will let Dr. Contreras decide type of stress test. Add-on lactate and procalcitonin. Will check UA/Ucx and monitor WBC. No signs/symptoms of infection. No indication for antibiotics at present. Monitor BP. NPO at midnight. Gentle IV hdyration. GI prophylaxis with famotidine. DVT prophylaxis: Mechanical SCDs. Code status: FULL Surrogate decision maker is her Scott Long. Case discussed with Dr. Navarro who agrees with plan as above.
[2019-11-02] MEDS ORDERED: Nicotine 14 MG PATCH TD SCH (18:30)
[2019-11-02] MEDS ORDERED: Nicotine 7 MG PATCH TOP SCH (19:00)
[2019-11-02 20:13] LABS: Lactic Acid 1.4 mmol/L (0.5-2.2)
[2019-11-02 20:33] LABS: Troponin I Less than 0.010 ng/mL (< 0.028)
[2019-11-02] MEDS ORDERED: hydrOXYzine 10 MG TAB PO PRN (22:27)
[2019-11-02] MEDS ORDERED: hydrOXYzine 10 MG TAB PO SCH (22:30)
[2019-11-02 23:21] LABS: Bacteria/HPF 2+ HPF (None Seen); Bilirubin Negative (Negative); Blood, Urine Negative (Negative); Clarity Clear (Clear); Glucose, Urine (Dipstick) Normal (Negative); Leukocyte Negative Leu/uL (Negative); Nitrite 2+ (Negative); Protein, Urine (Dipstick) Negative (Neg-Trace); RBC/HPF 0-3 HPF (0-3); Squamous Epithelial 0-3 HPF (0-3); Urobilinogen Normal mg/dL (Less than 2); WBC/HPF 0-3 HPF (0-3)
[2019-11-02 23:23] LABS: Urine Culture Reflex Yes Yes
[2019-11-03 04:40] LABS: #Basophils 0.1 thou/uL (0.0-0.2); #Eosinphils 0.5 thou/uL (0.0-0.7); #Lymphocytes 3.6 thou/uL (1.20-3.40); #Monocytes 0.8 thou/uL (0.11-0.59); #Neutrophils 6.1 thou/uL (1.40-6.50); %Basophils 0.9 % (0.0-1.0); %Eosinophils 4.9 % (0.0-10.0); %Lymphocytes 32.2 % (21.0-51.0); %Monocytes 7.1 % (0.0-10.0); Hemoglobin 11.2 g/dL (12.0-16.0); Mean Corpuscular HGB CONC 32.2 g/dL (32.0-36.0); Mean Corpuscular Hemoglobin 29.5 pg (27.0-31.0); Mean Corpuscular Volume 91.6 fL (78.0-98.0); Mean Platelet Volume 7.8 fL (7.4-10.4); Platelet Count 345 thou/uL (130-400); RBC Distribution Width 13.6 % (11.5-14.5); Red Blood Cell (RBC) Count 3.79 mill/uL (4.20-5.40); White Blood Cell (WBC) Count 11.1 thou/uL (4.8-10.8)
[2019-11-03 05:01] LABS: Anion Gap 12 mmol/L (10-20); BUN (Urea Nitrogen) 11 mg/dL (7.0-18.7); Calc. Creatinine Clearance 131 mL/min (70-130); Carbon Dioxide 21 mmol/L (22-29); Chloride 109 mmol/L (98-107); Estimated GFR-MDRD Greater than 90; Glucose 80 mg/dL (70-105); Potassium 3.9 mmol/L (3.5-5.1); Sodium 138 mmol/L (136-145)
[2019-11-03] MEDS ORDERED: Heparin 10,000 UNITS/1 ML VIAL ONE (07:25)
[2019-11-03] MEDS ORDERED: Verapamil 5 MG/2 ML VIAL ONE (07:25)
[2019-11-03] MEDS ORDERED: Nitroglycerin 100MG/250ML BOT 0 ML ONE (07:25)
[2019-11-03] MEDS ORDERED: Nitroglycerin 100MG/250ML BOT 250 ML ONE (07:26)
[2019-11-03] MEDS ORDERED: Midazolam HCl 2 mg/2 ml Vial ONE (07:51)
[2019-11-03] MEDS ORDERED: Fentanyl 100 MCG/2 ML VIAL ONE (07:52)
[2019-11-03] MEDS ORDERED: Aspirin 81 mg Enteric Coated Tablet PO SCH (09:00)
[2019-11-03] MEDS ORDERED: Prevnar 13-Val Conj/PF 0.5 ML SYRINGE IM ONE (09:00)
[2019-11-03] MEDS ORDERED: Iopamidol 370 76% 100 ML VIAL ONE (09:48)
[2019-11-03 15:46] VITALS: BP 109/74; TEMP 97.7
--- NOTE | 2019-11-03 18:40 | DIS ---
DATE OF ADMISSION: 11/02/2019 DATE OF DISCHARGE: 11/03/2019 DISCHARGE DISPOSITION: Home. FOLLOWUP: 1. Follow up with primary care physician at [facility] in 1 week. 2. Follow up with Dr. Contreras as scheduled. ALLERGIES: NO KNOWN DRUG ALLERGIES. THE PATIENT WAS SEEN AND EXAMINED ON THE DAY OF DISCHARGE. DENIES ANY NEW COMPLAINTS. NO CHEST PAIN, SHORTNESS OF BREATH, OR PALPITATIONS REPORTED. INPATIENT PROCEDURES: Cardiac catheterization and echocardiogram. BRIEF HOSPITAL COURSE: The patient is a 39-year-old female with bicuspid aortic valve and third-degree AV block requiring pacemaker in 2018, presented to the emergency room with chest discomfort. Please refer to the history and physical for further details. The patient was admitted to the telemetry unit with a diagnosis of chest discomfort, rule out acute coronary syndrome. Serial troponins were negative. She was evaluated by Cardiology, Dr. Contreras. She underwent cardiac catheterization and echocardiogram during this hospital stay. Both of the reports are pending at this time. The patient has been cleared by Cardiology for discharge. The patient was advised to follow up with Cardiology as scheduled. FINAL DIAGNOSES: 1. Chest discomfort, acute coronary syndrome ruled out. 2. History of third-degree AV block, status post pacemaker in the past. 3. Bicuspid aortic valve. 4. Anxiety. 5. Leukocytosis of unclear etiology without any left shift. 6. Chronic kidney disease, stage 2. The patient understands the above plan of care. Job ID: [id number]
--- NOTE | 2019-11-04 06:20 | PRG ---
DATE OF SERVICE: 11/03/2019 Ms. Long underwent coronary angiography today. She did not have significant coronary artery disease. Her echo showed normal LVEF. She did have a bicuspid valve, that was calcified with minimal decreased excursion. From a CV standpoint, it would be okay to discharge home with close outpatient followup. No further recommendations. Job ID: [id number]
--- NOTE | 2019-11-08 13:27 | EKG ---
Test Reason : Blood Pressure : / mmHG Vent. Rate : 066 BPM Atrial Rate : 066 BPM P-R Int : 190 ms QRS Dur : 090 ms QT Int : 394 ms P-R-T Axes : 058 045 044 degrees QTc Int : 413 ms Atrial-paced rhythm Abnormal ECG Confirmed by BECCA EDMOND DO ([id number]), computer numerical control grinder DIMPLE MELGAR ([id number]) on 11/08/2019 1:27:26 PM Referred By: Confirmed By:BECCA EDMOND DO
== END 2019-11-03 18:17 | disposition home or self-care (01) ==
LOC: ERS 13:01 → 2NO 14:39
PROVIDERS: ADMIT Internal Medicine; ATTEND Internal Medicine
DX: R07.89 Other chest pain (principal); Q23.1 Congenital insufficiency of aortic valve; F41.9 Anxiety disorder, unspecified; D72.829 Elevated white blood cell count, unspecified; N18.2 Chronic kidney disease, stage 2 (mild); F17.210 Nicotine dependence, cigarettes, uncomplicated; Z98.1 Arthrodesis status; Z95.0 Presence of cardiac pacemaker; Z79.899 Other long term (current) drug therapy
CPT/HCPCS: 36415; 71045; 80048; 80053; 81001; 82550; 83605; 83735; 84100; 84145; 84443; 84484; 85025; 87077; 87086; 87186; 93005; 93306; 93454; 99152; C1769; G0378; J1644; J2250; J3010; Q9967

== ENCOUNTER 2020-10-03 15:15 | Emergency (ER) | payer BC ==
--- NOTE | 2020-10-03 15:42 | RAD ---
EXAM: Chest PA and lateral: HISTORY: Nausea. Lightheadedness x2 days. Chest pressure COMPARISON: 09/07/2014 FINDINGS: Left-sided transvenous pacemaker with lead positioned over a trim right ventricle Heart: Normal cardiac silhouette Aorta: Unremarkable Pulmonary vessels: Normal Costophrenic angles: Costophrenic angles are clear. Lungs: No consolidation or masses. Pneumothorax: No pneumothorax Osseous structures: No osseous abnormalities IMPRESSION: No acute cardiopulmonary process.
[2020-10-03 16:41] LABS: #Basophils 0.1 thou/uL (0.0-0.2); #Eosinphils 0.5 thou/uL (0.0-0.7); #Lymphocytes 2.7 thou/uL (1.20-3.40); #Monocytes 0.6 thou/uL (0.11-0.59); #Neutrophils 4.8 thou/uL (1.40-6.50); %Basophils 1.1 % (0.0-1.0); %Eosinophils 5.6 % (0.0-10.0); %Lymphocytes 31.1 % (21.0-51.0); %Monocytes 7.2 % (0.0-10.0); Hemoglobin 12.2 g/dL (12.0-16.0); Mean Corpuscular HGB CONC 30.9 g/dL (32.0-36.0); Mean Corpuscular Hemoglobin 29.7 pg (27.0-31.0); Mean Platelet Volume 7.4 fL (7.4-10.4); Platelet Count 387 thou/uL (130-400); RBC Distribution Width 14.1 % (11.5-14.5); Red Blood Cell (RBC) Count 4.12 mill/uL (4.20-5.40); White Blood Cell (WBC) Count 8.8 thou/uL (4.8-10.8)
[2020-10-03 16:51] LABS: ALT (SGPT) 18 U/L (8-55); AST (SGOT) 17 U/L (5-34); Alkaline Phosphatase 67 U/L (40-110); Anion Gap 13 mmol/L (10-20); BUN (Urea Nitrogen) 9 mg/dL (7.0-18.7); Bilirubin, Total 0.2 mg/dL (0.2-1.2); Calc. Creatinine Clearance 0 mL/min (70-130); Calcium 9.1 mg/dL (7.8-10.44); Carbon Dioxide 22 mmol/L (22-29); Chloride 107 mmol/L (98-107); Globulin 3.3 g/dL (2.4-3.5); Glucose 126 mg/dL (70-105); Potassium 3.7 mmol/L (3.5-5.1); Protein, Total 7.3 g/dL (6.0-8.3); Sodium 138 mmol/L (136-145)
[2020-10-03] MEDS ORDERED: Lidocaine Viscous Sol 2% 15 ml UD Cup ONE (17:15)
[2020-10-03] MEDS ORDERED: Ondansetron ODT 4 MG TAB ONE (17:15)
[2020-10-03] MEDS ORDERED: Mag-Al 1200 mg/1200 mg/30 ML UDCUP ONE (17:15)
--- NOTE | 2020-10-06 10:30 | EKG ---
Test Reason : Blood Pressure : / mmHG Vent. Rate : 073 BPM Atrial Rate : 073 BPM P-R Int : 174 ms QRS Dur : 092 ms QT Int : 394 ms P-R-T Axes : 053 037 064 degrees QTc Int : 434 ms Sinus rhythm with occasional Premature ventricular complexes Possible Left atrial enlargement Borderline ECG Confirmed by YE FERNANDO, YOLANDA Rodriguez ([id number]), social media editor ERIN CAMPBELL ([id number]) on 10/06/2020 10:29:56 AM Referred By: Confirmed By:YOLANDA BELCHER MD
== END 2020-10-03 17:55 | disposition home or self-care (01) ==
LOC: ERS 15:15
DX: R10.13 Epigastric pain (principal); R07.2 Precordial pain; R11.0 Nausea; R42 Dizziness and giddiness; F17.210 Nicotine dependence, cigarettes, uncomplicated
CPT/HCPCS: 36415; 71046; 80053; 83690; 84484; 85025; 93005; Q0162

== ENCOUNTER 2021-01-17 00:14 | Emergency (ER) | payer SELFPAY | END 2021-01-17 02:17 | disposition left against medical advice (07) | LOC: ERS 00:14 | DX: Z53.21 Procedure and treatment not carried out due to patient leaving prior to being seen by health care provider (principal) | CPT/HCPCS: 71045; 93005; 94760 ==